=== PATIENT | male | born 2000 | race Caucasian/White ===

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

== ENCOUNTER 2018-10-01 12:21 | Emergency (ER) | payer OTHER ==
[2018-10-01 12:33] VITALS: BP 137/70
--- NOTE | 2018-10-01 12:52 | UC ---
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 no fevers. throat is red. no cough. no abd pain. no n/v. -From [place]. Finals are this week. not really tired. - History of Current Complaint Chief Complaint: UCGeneralIllness Stated Complaint: SORE THROAT Time Seen by Provider: 10/01/18 12:45 Hx Obtained From: Patient Pain Intensity: 4 - Allergies/Home Medications Allergies/Adverse Reactions: Allergies Allergy/AdvReac Type Severity Reaction Status Date / Time No Known Allergies Allergy Verified 01/13/17 15:35 Home Medications: Home Medications diphenhydrAMINE HCl [Benadryl Allergy 25 MG CAP] 1 each PO ONCE 10/01/18 [ History Confirmed 10/01/18] PMH/Surg Hx/FS Hx/Imm Hx Previously Healthy: Yes - Surgical History Surgical History: None - Family History Known Family History: Negative: Cardiac Disease, Hypertension - Social History Alcohol Use: Occasionally Substance Use Type: Marijuana Substance Use Comment - Amount & Last Used: WEEKLY Smoking Status (MU): Never Smoked Tobacco - Immunization History Most Recent Influenza Vaccination: [id number] Review of Systems All Other Systems Reviewed And Are Negative: Yes Constitutional: Positive: Negative Skin: Positive: Negative Eyes: Positive: Negative ENT: Positive: Sore Throat Respiratory: Positive: Negative Cardiovascular: Positive: Negative Gastrointestinal: Positive: Negative Genitourinary: Positive: Negative Motor: Positive: Negative Neurovascular: Positive: Negative Musculoskeletal: Positive: Negative Neurological: Positive: Negative Psychological: Positive: Negative Is Patient Immunocompromised?: No Physical Exam Triage Information Reviewed: Yes Appearance: Well-Appearing, No Pain Distress, Well-Nourished - very pleasant Vital Signs: Initial Vital Signs Temp 97.2 F 10/01/18 12:31 Pulse 71 10/01/18 12:31 Resp 16 10/01/18 12:31 BP 137/70 10/01/18 12:31 Pulse Ox 100 10/01/18 12:31 Vital Signs Reviewed: Yes Eye Exam: Normal ENT Exam: Normal ENT: Positive: Pharyngeal erythema - No exudate, no PND, TMs normal, Uvula midline. Negative: Nasal congestion, Nasal drainage, Tonsillar swelling, Tonsillar exudate, Hoarse voice, Sinus tenderness Dental Exam: Normal Neck: Positive: Supple, Enlarged Nodes @ - rt anterior Cx LN, rubbery, tender. no posterior nodes, no occiptal or auricular nodse. Negative: Nuchal Rigidity Respiratory: Positive: Chest non-tender, Lungs clear, Normal breath sounds, No respiratory distress, No accessory muscle use, Respiratory distress. Negative: Crackles, Rhonchi, Stridor, Wheezing Abdomen Description: Positive: Nontender, Soft. Negative: Distended, Guarding, Hepatomegaly, Splenomegaly Bowel Sounds: Positive: Present Musculoskeletal Exam: Normal Neurological Exam: Normal Psychological Exam: Normal Skin Exam: Normal Throat Pain/Nasal Course/Dx - Course Course Of Treatment: rapid strep neg. -EBV titers ordered. recommend that he call for results - Differential Dx/Diagnosis Differential Diagnosis/HQI/PQRI: Laryngitis, Mononucleosis, Peritonsillar Abscess, Pharyngitis Provider Diagnosis: Pharyngitis Discharge - Sign-Out/Discharge Documenting (check all that apply): Patient Departure All imaging exams completed and their final reports reviewed: No Studies - Discharge Plan Condition: Stable Disposition: HOME Patient Education Materials: Mononucleosis (ED), Pharyngitis (ED) Referrals: No Primary Care Phys,NOPCP [Primary Care Provider] - Additional Instructions: I printed out ppwk for you regarding mono in case your test comes back positive. Please call us in a few days to get the results. You should assume that you have it until test is confirmed negative. Avoid physical activity. -Strep test is negative. -Follow up with your PCP at home. - Billing Disposition and Condition Condition: STABLE Disposition: Home
== END 2018-10-01 13:10 | disposition home or self-care (01) ==
LOC: UCCORT 12:21
DX: J02.9 Acute pharyngitis, unspecified (principal)
CPT/HCPCS: 86664; 86665; 87651; 99211; G0463